=== PATIENT | male | born 2005 | race Caucasian/White ===

== ENCOUNTER 2025-02-10 11:37 | Emergency (ER) | payer OTHER, SELFPAY ==
--- NOTE | 2025-02-10 11:45 | ED.GENADULT ---
HPI - General Adult General Chief complaint: Head Injury Stated complaint: Head Injury At Work Time Seen by Provider: 02/10/25 11:49 Source: patient, RN notes reviewed and old records reviewed Mode of arrival: ambulatory Limitations: no limitations History of Present Illness HPI narrative: 19-year-old male presents to the [facility] with a head injury. Patient states that he was picking something up, stood up and hit the top of his head on the corner of a microwave. Denies any loss of consciousness. Patient is alert oriented, remembers the entire incident. Denies any nausea or vomiting. No blurry vision or change in vision. Patient currently not on blood thinners Patient reports that he is up-to-date on his tetanus shot Onset (ago): hour(s) (1) Related Data Allergies Allergy/AdvReac Type Severity Reaction Status Date / Time No Known Allergies Allergy Verified 02/10/25 12:06 Review of Systems Review of Systems: All systems reviewed & are unremarkable except as noted in HPI and below Constitutional: Constitutional: Reports no additional constitutional complaints ENT: Reports system reviewed and no additional complaints, except as documented Cardiovascular: Cardiovascular: Reports no additional cardiovascular complaints, Denies chest pain and Denies dyspnea Respiratory: Respiratory: Reports no additional respiratory complaints, Denies chest congestion, Denies cough and Denies dyspnea Musculoskeletal: Musculoskeletal: Reports no additional musculoskeletal complaints Integumentary/Breasts: Skin/Breast: Reports as per HPI PMFSH Comments At the time of my signature, I reviewed and agree with the nursing past medical, surgical, social, and family history. There is no relevant family history pertinent to the patient complaint. Exam Const: General: cooperative, healthy appearing, comfortable, no acute distress, well developed, alert and well nourished Nutritional Appearance: well nourished Orientation/consciousness: patient oriented x3 Limitations: no limitations HENMT: Head: normal to inspection Head images:  1. 1.5 cm laceration. Bleeding is controlled Ears: hearing grossly normal bilaterally, external ears normal and TM's normal bilaterally Throat: posterior oropharynx normal, uvula midline and no uvular edema Eyes: General: appearance normal, both eyes and all related structures Alignment and Position: alignment normal Neck: Neck: normal visual inspection, full ROM, no lymphadenopathy and no meningeal signs Chest: Chest palpation & inspection: normal inspection of the chest Resp: Effort & Inspection: normal respiratory effort and able to speak in complete sentences Cardio: Rate: regular rate Skin: General skin exam: normal color and no rashes or lesions noted Neuro: General: patient oriented x3, gait normal, moves all extremities and no meningeal signs Cognition (Neuro): normal cognition Speech: normal speech Gait exam (Neuro): Normal gait present Extrem: General: normal to inspection, full ROM, capillary refill normal and normal gait Psych: Appearance: grossly normal and well kempt Mental Status: mental status grossly normal Speech and movement: Normal speech and movement present and Clear speech present Affect: normal affect Attitude: cooperative Course Course Level of Care: Express Care Visit Vital Signs Vital signs: Vital Signs Temperature 98.3 F 02/10/25 11:50 Pulse Rate 65 02/10/25 11:50 Respiratory Rate 18 02/10/25 11:50 Blood Pressure 125/64 02/10/25 11:50 Pulse Oximetry 100 02/10/25 11:50 Oxygen Delivery Room Air 02/10/25 11:50 Temperature 98.3 F 02/10/25 11:50 Pulse Rate 65 02/10/25 11:50 Respiratory Rate 18 02/10/25 11:50 Blood Pressure 125/64 02/10/25 11:50 Pulse Oximetry 100 02/10/25 11:50 Oxygen Delivery Room Air 02/10/25 11:50 Reviewed Procedures Laceration Laceration 1: Date: 02/10/25 Time: 12:03 Site: scalp Size (cm): 1.5 Description: linear and clean Depth: simple, single layer Pre-repair: wound explored and irrigated (150mls wound coach cleaner and saline) ====== Skin Level ====== Skin layer closed with: maria elena Number of sutures: 2 ====== Subcutaneous Layer ====== ====== Muscle Layer ====== ====== Tendon Layer ====== Dressing: Area cleaned, was procedure explained, verbal consent obtained. Two maria elena placed. Patient tolerated well Medical Decision Making MDM Narrative Medical decision making narrative: Patient sitting in exam room. Patient is nontoxic, vitals stable. Patient with no loss of consciousness after hitting head. No neurologic deficits. Patient is appropriate for outpatient treatment, 2 maria elena placed. Discharge instructions reviewed with patient, as well as provided in writing per nursing staff. The instructions also include specific and strict return/GO TO THE ER as well as f/u information. All questions have been answered, and the patient deny any further questions with discharge and discharge plan. Some parts of this dictation were generated by voice recognition software and may contain typographical and/or grammatical inaccuracies. Differential Diagnosis Differential Diagnosis: Laceration, contusion, concussion, head injury Medical Records Medical records reviewed: Yes I reviewed the external patient's medical records. Vital Signs Vital Signs: Vital Signs Temperature 98.3 F 02/10/25 11:50 Pulse Rate 65 02/10/25 11:50 Respiratory Rate 18 02/10/25 11:50 Blood Pressure 125/64 02/10/25 11:50 Pulse Oximetry 100 02/10/25 11:50 Oxygen Delivery Room Air 02/10/25 11:50 Temperature 98.3 F 02/10/25 11:50 Pulse Rate 65 02/10/25 11:50 Respiratory Rate 18 02/10/25 11:50 Blood Pressure 125/64 02/10/25 11:50 Pulse Oximetry 100 02/10/25 11:50 Oxygen Delivery Room Air 02/10/25 11:50 Reviewed Lab Data Lab results reviewed: Yes I reviewed the patient's lab results. Labs: Reviewed Critical Care Time Critical Care Time Critical Care Time: No Discharge Plan Discharge Clinical Impression: Closed head injury Qualifiers: Encounter type: initial encounter Qualified Code(s): S09.90XA - Unspecified injury of head, initial encounter Laceration of scalp Qualifiers: Encounter type: initial encounter Qualified Code(s): S01.01XA - Laceration without foreign body of scalp, initial encounter Patient Disposition: Home Condition: Stable Instructions: Concussion (ED), Head Injury (ED), Staple Care (ED) Additional Instructions: Keep area clean and dry. Wash twice a day with warm soapy water. Apply ice every 2-3 hours for 15-20 minutes while awake Take Tylenol every 6-8 hours per package instructions as needed for pain Follow-up with primary care provider [facility] For new or worsening symptoms such as but not limited to, if you develop a severe headache, blurry vision or vomiting please proceed to the nearest emergency room for further evaluation Patient Language: Albanian Follow-up/Referrals: PHYSICIAN,FOUNDRY SUPERINTENDANT [Primary Care Provider, Internal Medicine] Stand Alone Forms: Work/School Release IP Time of Disposition: 12:10
[2025-02-10 11:50] VITALS: BP 125/64; PULSE 65; RESP 18; TEMP 36.8; O2SAT 100
== END 2025-02-10 12:13 | disposition home or self-care (01) ==
PROVIDERS: Emergency Provider Nurse Practitioner
DX: S09.90XA Unspecified injury of head, initial encounter (principal); S01.01XA Laceration without foreign body of scalp, initial encounter; W22.8XXA Striking against or struck by other objects, initial encounter
CPT/HCPCS: 12001; 99213; G0463

== ENCOUNTER 2025-02-17 13:52 | Emergency (ER) | payer SELFPAY ==
[2025-02-17 14:05] VITALS: BP 111/66; PULSE 80; RESP 16; TEMP 36.9; O2SAT 100
--- NOTE | 2025-02-17 14:17 | ED.WOUNDLAC ---
HPI - Wound/Laceration General Chief Complaint: Wound/Laceration Stated Complaint: Maria Elena Removal Time Seen by Provider: 02/17/25 14:16 Source: patient, RN notes reviewed and old records reviewed Mode of arrival: ambulatory Limitations: no limitations History of Present Illness HPI narrative: 19-year-old male presents to the [facility] to have maria elena removed. Denies any issues with the maria elena. Had a placed 1 week ago Related Data Home Medications ?Medication ?Instructions ?Recorded ?Confirmed ?Last Taken ?Type No Home Medications 02/17/25 02/17/25 Unknown History Allergies Allergy/AdvReac Type Severity Reaction Status Date / Time No Known Allergies Allergy Verified 02/17/25 14:08 Review of Systems Review of Systems: All systems reviewed & are unremarkable except as noted in HPI and below Constitutional: Constitutional: Reports no additional constitutional complaints ENT: Reports system reviewed and no additional complaints, except as documented Cardiovascular: Cardiovascular: Reports no additional cardiovascular complaints, Denies chest pain and Denies dyspnea Respiratory: Respiratory: Reports no additional respiratory complaints, Denies chest congestion, Denies cough and Denies dyspnea Musculoskeletal: Musculoskeletal: Reports no additional musculoskeletal complaints PMFSH Comments At the time of my signature, I reviewed and agree with the nursing past medical, surgical, social, and family history. There is no relevant family history pertinent to the patient complaint. Exam Const: General: cooperative, healthy appearing, comfortable, no acute distress, well developed, alert and well nourished Nutritional Appearance: well nourished Orientation/consciousness: patient oriented x3 Limitations: no limitations HENMT: Head: normal to inspection Head images:  1. 2 maria elena in placed. Eyes: General: appearance normal, both eyes and all related structures Alignment and Position: alignment normal Neck: Neck: normal visual inspection, full ROM, no lymphadenopathy and no meningeal signs Chest: Chest palpation & inspection: normal inspection of the chest Resp: Effort & Inspection: normal respiratory effort and able to speak in complete sentences Auscultation: clear to auscultation bilaterally, no crackles, no rales, no rhonchi and no wheezes Cardio: Rate: regular rate Skin: General skin exam: normal color and no rashes or lesions noted Neuro: General: patient oriented x3, gait normal, moves all extremities and no meningeal signs Cognition (Neuro): normal cognition Speech: normal speech Gait exam (Neuro): Normal gait present Extrem: General: normal to inspection, full ROM, capillary refill normal and normal gait Psych: Appearance: grossly normal and well kempt Mental Status: mental status grossly normal Speech and movement: Normal speech and movement present and Clear speech present Affect: normal affect Attitude: cooperative Course Course Emergency Course: Area cleaned with wound cleanser. Two maria elena removed without issue Level of Care: Express Care Visit Vital Signs Vital signs: Vital Signs Temperature 98.4 F 02/17/25 14:05 Pulse Rate 80 02/17/25 14:05 Respiratory Rate 16 02/17/25 14:05 Blood Pressure 111/66 02/17/25 14:05 Pulse Oximetry 100 02/17/25 14:05 Oxygen Delivery Room Air 02/17/25 14:05 Temperature 98.4 F 02/17/25 14:05 Pulse Rate 80 02/17/25 14:05 Respiratory Rate 16 02/17/25 14:05 Blood Pressure 111/66 02/17/25 14:05 Pulse Oximetry 100 02/17/25 14:05 Oxygen Delivery Room Air 02/17/25 14:05 Reviewed MDM - Wound/Laceration MDM Narrative Medical decision making narrative: Patient sitting in exam room. Patient is nontoxic, vitals stable. Patient presents to have maria elena removed. Able to remove maria elena without issue. No acute findings noted on exam. Patient is appropriate for outpatient treatment with close follow-up Discharge instructions reviewed with patient, as well as provided in writing per nursing staff. The instructions also include specific and strict return/GO TO THE ER as well as f/u information. All questions have been answered, and the patient deny any further questions with discharge and discharge plan. Some parts of this dictation were generated by voice recognition software and may contain typographical and/or grammatical inaccuracies. Differential Diagnosis Differential diagnosis: Likely laceration, abscess and avulsion of skin Critical Care Time Critical Care Time Critical Care Time: No Discharge Plan Discharge Clinical Impression: Encounter for removal of maria elena Patient Disposition: Home Condition: Stable Instructions: Antibiotic Form, Acute Wounds (DC) Additional Instructions: Keep area clean and dry. Wash with warm soapy water. Follow-up with primary care provider Patient Language: Moldovan Prescriptions: No Action No Home Medications Follow-up/Referrals: PHYSICIAN,REPEATER OPERATOR [Primary Care Provider, Internal Medicine] Time of Disposition: 14:20
== END 2025-02-17 14:25 | disposition home or self-care (01) ==
PROVIDERS: Emergency Provider Nurse Practitioner
DX: S01.01XD Laceration without foreign body of scalp, subsequent encounter (principal); X58.XXXD Exposure to other specified factors, subsequent encounter
CPT/HCPCS: 99211; G0463